=== PATIENT | male | born 1940 | race Caucasian/White ===

== ENCOUNTER → 2016-06-23 | Day surgery (SDC) | payer MEDICARE ==
[~2016-06-23] MED LIST: ASPI325T PO; BIOT1SUB SL; BUSP5TAB PO; BUTA50TA PO; CENTTAB8 PO; ESSE250T PO; IBUP200C PO; LIDOCAINE HCL 1% PF 30 ML VIAL OTHER ONE; NATU400T PO; SODIUM CHLORIDE 0.9% 10 ML VIAL ONE; SOMA350T PO; VITA500T PO; methylPREDNISolone ACETATE 80 MG/ML VIAL ONE
--- NOTE | 2016-06-26 05:34 | M6 ---
cc: MATTEO PARKER M.D. DATE 06/23/2016 DATE OF 1940 PROCEDURE Fluoroscopically guided L5-S1 translaminar epidural steroid injection. History and physical was completed and signed. Consent was signed. Procedure site was marked. Medications were listed and reconciled. Pain score was recorded. Allergies were noted. Time out was taken. Fluoroscopy time was recorded where applicable. Sedation was administered or directed by Dr. Parker. The patient was given oxygen. The patient was monitored by a registered nurse. Total procedure time was greater than 15 minutes. PROCEDURE NOTE IV was started. Blood pressure cuff, pulse oximeter and EKG were applied. The patient was placed in the prone position on a Roberto Carlos table. No sedation was used. His back was prepped with alcohol and 10% Betadine and draped with sterile drapes. Fluoroscopy was used to visualize the L5-S1 translaminar space. The skin was infiltrated with 1% Xylocaine using a 27-gauge needle. Then a 3-1/2-inch, 18-gauge Estrada needle was advanced using fluoroscopic guidance and the [id number]-[id number] technique into the epidural space at L5-S1 slightly to the right of the midline. There was negative aspiration for blood or any other type of fluid and the patient was given 8 mL of 0.5% Xylocaine, 80 mg of Depo-Medrol. Following the procedure the patient was taken to the recovery room with stable vital signs, neurologically intact. WMD ANTONINA Williamson/LEORA /10:24 AM /5:31 AM
== END | disposition home or self-care (01) ==
LOC: PHSDC 08:39
PROVIDERS: ATTEND Pain Medicine Interventional Pain Medicine
DX: M48.06 Spinal stenosis, lumbar region (principal); M12.88 Other specific arthropathies, not elsewhere classified, other specified site; M54.16 Radiculopathy, lumbar region
CPT/HCPCS: 62323; J1040

== ENCOUNTER → 2016-07-27 | Day surgery (SDC) | payer MEDICARE ==
[~2016-07-27] MED LIST changes: +BUPIVACAINE/EPINEPHRINE 0.25% 50 ML VIAL ONE; +KETOROLAC TROMETHAMINE 30 MG/ML (IVP) VIAL IV PUSH ONE; +LACTATED RINGER'S 1000 ML INJ 1,000 ML ONE; -LIDOCAINE HCL 1% PF 30 ML VIAL OTHER ONE; +MEPERIDINE HCL 50 MG/ML VIAL ONE; +MIDAZOLAM HCL 2 MG/2 ML VIAL ONE; +ONDANSETRON HCL 4 MG/2 ML VIAL IV PUSH ONE; +PROPOFOL 200 MG/20 ML AMP IV ONE; -SODIUM CHLORIDE 0.9% 10 ML VIAL ONE; +ceFAZolin 2 GM PREMIX 50 ML ONE; -methylPREDNISolone ACETATE 80 MG/ML VIAL ONE
--- NOTE | 2016-07-27 12:45 | TN ---
cc: GRACE MENDIOLA M.D. DATE OF SURGERY 07/27/2016 PREOPERATIVE DIAGNOSES 1. Left inguinal hernia, symptomatic. 2. Umbilical hernia, incidental. POSTOPERATIVE DIAGNOSES 1. Left inguinal hernia, symptomatic. 2. Umbilical hernia, incidental. PROCEDURE 1. Laparoscopic repair left inguinal hernia with mesh. 2. Umbilical hernia repair. SURGEON Dr. Grace Mendiola [employer] GIULIANA Solis ANESTHESIA General INDICATIONS This is a very pleasant 75-year-old gentleman who presented with a history of recurrent left inguinal hernia. He had a hernia repair done in 1992 and 1993. About a year ago he began experiencing a small bulge in the left inguinal area that is progressively getting bigger and more uncomfortable. He had an incidentally discovered small fingertip-sized umbilical hernia which was reducible and tender. Plans were made for operative repair. This procedure was assisted by my nurse practitioner. The skill set of a nurse practitioner was felt to be medically necessary to provide appropriate visualization of the important anatomic structures. During the surgical procedure, the surgical scrub technician was at the back table providing appropriate instrumentation while the nurse practitioner was directly assisting me through the entirety of the procedure. DESCRIPTION OF PROCEDURE IN DETAIL The patient was identified as Madhu Muro, taken to the operating room and placed supine position. Sequential compression devices were placed on the bilateral lower extremities. Following induction of adequate general anesthesia, the patient's lower abdomen was prepped and draped in the usual sterile fashion with Betadine. A time-out procedure was performed. Following completion of the time-out procedure to everyone's satisfaction within the room, the proposed infraumbilical small transverse incision was made beneath the umbilicus with a marking pen. Local anesthetic was placed around the umbilicus. The skin incision was carried out with scalpel and umbilical skin was lifted off the herniated preperitoneal fatty tissue, it from the overlying umbilical skin. The anterior fascia was cleared circumferentially around the umbilical hernia defect. Attention was turned to identification of the anterior rectus fascia on the left side. This was incised at its medial border and a preperitoneal plane was developed with the surgeon's finger directed towards the pubic symphysis. With the patient in slight Trendelenburg position, preperitoneal dissecting balloon was placed in the preperitoneal space under direct laparoscopic view and inflated to a total of approximately 25 pumps. This allowed identification of the left side José Antonio's ligament and the inferior epigastric vessels. The balloon was desufflated, removed and the structural balloon trocar placed in the preperitoneal space and its balloon inflated with CO2 insufflation until a level of 11 mmHg ensued. Two infraumbilical 5-mm trocars were placed in the preperitoneal space under direct laparoscopic view after incision of the skin with a scalpel. Attention was turned to the left side where blunt graspers were used to dissect lateral and posterior to the spermatic cord. An obvious indirect inguinal hernia sac which was chronic in nature, was scarred and adherent to the spermatic cord structures. It was reduced to the base of the spermatic cord carefully using blunt graspers and then a defect in the sac was made. Once it had been reduced to the base of the spermatic cord, examination was made to look for any spermatic cord lipoma and none was identified. There was no evidence of femoral or direct hernia defects as these areas were carefully inspected. A 4 x 6-inch piece of atrium ProLite mesh was cut with an anterolateral slit placed around the spermatic cord and tacked in position with the ProTack device. Tacks were placed to approximate the anterolateral slit along the anterior border of José Antonio's ligament. A 2 6-inch piece of mesh was placed across the anterolateral slit and held in position with the ProTack device. A tack was placed on the superior medial border of José Antonio's ligament on the superior lateral border of the mesh and superior medially and just medial to the inferior epigastric vessels. Photographs were taken of the completed repair. The remaining local anesthetic was placed in the preperitoneal space. The inferolateral aspect of the mesh was held against the abdominal wall while the preperitoneal space was desufflated and the peritoneum lay directly on top of the mesh, not underneath it. Trocars were removed under direct visualization. There was no evidence of bleeding from the trocar sites. The preperitoneal space was desufflated through the infraumbilical port and was then removed. The anterior rectus fascial incision was closed with running 2-0 Vicryl suture. The umbilical hernia defect was approximated with interrupted inverted 0 Prolene sutures. The umbilicus was sutured down to recreate the normal inward projection of the umbilicus using interrupted 2-0 Vicryl sutures. Skin incisions were approximated with 4-0 Monocryl subcuticular sutures. Dressings were applied with Mastisol, 1/2-inch brown Steri-Strips, gauze and Tegaderm were placed within the umbilicus. The patient tolerated the procedure without apparent complication. Sponge, needle and instrument counts were correct at the end of the case. MD MAYELA Medina/LEORA /12:10 PM /12:25 PM
== END | disposition home or self-care (01) ==
LOC: ESDC 09:37
PROVIDERS: ATTEND Surgery Trauma Surgery
DX: K40.90 Unilateral inguinal hernia, without obstruction or gangrene, not specified as recurrent (principal); K42.9 Umbilical hernia without obstruction or gangrene
CPT/HCPCS: 00750; 00840; 49585; 49650; C1727; C1781; J0690; J1885; J2175; J2250; J2405; J3010; J7120

== ENCOUNTER → 2017-02-24 | Day surgery (SDC) | payer MEDICARE ==
[~2017-02-24] VITALS: Ht 182.9 cm; Wt 91.0 kg
[~2017-02-24] MED LIST changes: +ASPI81CH CHEW; +BIOTCAP PO; +BUPIVACAINE HCL PF 0.5% 30 ML VIAL ONE; -BUPIVACAINE/EPINEPHRINE 0.25% 50 ML VIAL ONE; +CEPH-460 PO; +CHLORHEXIDINE GLUCONATE 2 % 1 PACK (2 CLOTHS) TOPICAL PRN; +INSULIN HUMAN REGULAR 1,000 UNITS/10 ML VIAL SQ PRN; -KETOROLAC TROMETHAMINE 30 MG/ML (IVP) VIAL IV PUSH ONE; -LACTATED RINGER'S 1000 ML INJ 1,000 ML ONE; +LACTATED RINGER'S 1000 ML IV PRN; +LIDOCAINE HCL 2% 50 ML VIAL ONE; -MEPERIDINE HCL 50 MG/ML VIAL ONE; +METOPROLOL TARTRATE 25 MG TAB PO PRN; +NEOMYCIN/POLYMYXIN 1 ML G.U. IRRIGANT ONE; +NORC5TAB PO; -ONDANSETRON HCL 4 MG/2 ML VIAL IV PUSH ONE; +ONE-TAB14 PO; +POVIDONE IODINE 5% (ANTISEPSIS KIT) 4 APPLICATIONS EACH NARE PRN; +SODIUM CHLORID 0.9% 500 ML IV PRN; +VITA-136 PO; +VITA500T83 PO; +ceFAZolin 2 GM PREMIX 50 ML IV SCH; -ceFAZolin 2 GM PREMIX 50 ML ONE
--- NOTE | 2017-02-24 10:09 | MP ---
cc: JOEL PETIT III, M.D. DATE OF SURGERY: 02/24/2017 PREOPERATIVE DIAGNOSIS Left ring finger mass. POSTOPERATIVE DIAGNOSIS Left ring finger mass. PROCEDURE Left ring finger mass excisional biopsy. SURGEON Joel Petit III, MD DETAILS OF PROCEDURE The patient was brought into the operating room and placed supine on the operating table. After the correct site and side of surgery were verified by members of each team in the room multiple times including the patient and myself, and after adequate preoperative markings and preoperative written consent was verified by everyone, and after an adequate preoperative timeout was performed to everyone's satisfaction and after adequate IV sedation had been achieved, the left upper extremity was prepped and draped in traditional sterile surgical fashion. The smallest finger from a size six sterile glove was placed around the finger for a finger tourniquet. A longitudinally oriented axial incision overlying the ulnar side of the mass was made within a skin crease and carried down through the skin and subcutaneous tissue. A large white well-circumscribed mass that led down to the joint was identified. It was dissected free from the surroundings in its entirety and passed off the field as a specimen. The material inside it was thick and chalky. There was no instability of the joint. There was no other anatomic abnormality. Thorough irrigation with a liter's worth of saline was performed. The skin edges were re-approximated using running 5-0 nylon suture. The hand and arm were thoroughly cleansed and dried. Betadine Adaptic dressings were applied atop the wound followed by a bulky soft dressing. The finger tourniquet was released. The finger became immediately soft, pink and warm and had brisk capillary refill of less than 2 seconds. The patient was awakened from anesthesia and transported to the post-anesthesia care unit awake and in stable condition at the end of the case. Sponge, needle and instrument counts were correct at the end of the case as reported by the nurses in the room. MD RODNEY Martinez III/FAUSTINO /9:40 AM /9:58 AM
[2017-02-24 10:15] VITALS: BP 108/70; PULSE 74; RESP 16; TEMP 98; O2SAT 95
--- NOTE | 2017-02-24 13:43 | EKG ---
Date Performed: 02/24/2017 Time Performed: 08:46:30 PTAGE: 76 years EKG: Sinus rhythm WITH OCCASIONAL SUPRAVENTRICULAR PREMATURE COMPLEXES POSSIBLE RIGHT VENTRICULAR CONDUCTION DELAY BOR DERLINE ECG NO PREVIOUS TRACING DOCTOR: Rayshawn Carrillo Interpretating Date/Time 02/24/2017 13:40:37
== END | disposition home or self-care (01) ==
LOC: PHSDC 06:52
PROVIDERS: ATTEND Orthopaedic Surgery Hand Surgery
DX: R22.32 Localized swelling, mass and lump, left upper limb (principal); R94.31 Abnormal electrocardiogram [ECG] [EKG]
CPT/HCPCS: 01810; 26116; 88305; 93005; J0690; J2250; J7120

== ENCOUNTER → 2017-04-08 | Day surgery (SDC) | payer MEDICARE ==
[~2017-04-08] MED LIST changes: +ASPI-516 CHEW; -ASPI325T PO; -ASPI81CH CHEW; -BIOT1SUB SL; -BUPIVACAINE HCL PF 0.5% 30 ML VIAL ONE; -CENTTAB8 PO; -CEPH-460 PO; +CHEL200T PO; -CHLORHEXIDINE GLUCONATE 2 % 1 PACK (2 CLOTHS) TOPICAL PRN; -INSULIN HUMAN REGULAR 1,000 UNITS/10 ML VIAL SQ PRN; -LACTATED RINGER'S 1000 ML IV PRN; +LIDOCAINE HCL 1% 30 ML VIAL NERV BLOCK ONE; -LIDOCAINE HCL 2% 50 ML VIAL ONE; -METOPROLOL TARTRATE 25 MG TAB PO PRN; -MIDAZOLAM HCL 2 MG/2 ML VIAL ONE; -NATU400T PO; -NEOMYCIN/POLYMYXIN 1 ML G.U. IRRIGANT ONE; -NORC5TAB PO; -POVIDONE IODINE 5% (ANTISEPSIS KIT) 4 APPLICATIONS EACH NARE PRN; -PROPOFOL 200 MG/20 ML AMP IV ONE; -SODIUM CHLORID 0.9% 500 ML IV PRN; +SODIUM CHLORIDE 0.9% 10 ML VIAL ONE; +TRIAMCINOLONE ACETONIDE 40 MG/ML VIAL NERV BLOCK ONE; -VITA-136 PO; +VITA-142 PO; -VITA500T PO; -ceFAZolin 2 GM PREMIX 50 ML IV SCH; +methylPREDNISolone ACETATE 80 MG/ML VIAL ONE
--- NOTE | 2017-04-08 11:42 | M6 ---
cc: MATTEO PARKER M.D. DATE 04/08/2017 DATE OF 1940 PROCEDURE Fluoroscopically-guided L5-S1 translaminar epidural steroid injection. History and physical was completed and signed. Consent was signed. Procedure site was marked. Medications were listed and reconciled. Pain score was recorded. Allergies were noted. Time out was taken. Fluoroscopy time was recorded where applicable. Sedation was administered or directed by Dr. Parker. The patient was given oxygen. The patient was monitored by a registered nurse. Total procedure time was greater than 15 minutes. PROCEDURE NOTE IV was started. Blood pressure cuff, pulse oximeter and EKG were applied. The patient was placed in the prone position on a Roberto Carlos table, sedated with small amounts of propofol titrated to effect. Vital signs were monitored and remained stable throughout the procedure. The lumbar area was prepped with alcohol and 10% Betadine solution and draped with sterile drapes. Fluoroscopy was used to visualize the L5-S1 interlaminar space. The skin was infiltrated with 1% Xylocaine using a 27-gauge needle. Then a 3-1/2-inch, 18-gauge Estrada needle was advanced using fluoroscopic guidance and the [id number]-tg-zsobzankca technique into the epidural space at L5-S1 slightly to the right of the midline. There was negative aspiration for blood or any other type of fluid and the patient was given 10 mL of 0.5% lidocaine and 80 mg of Depo-Medrol. Following that the patient was taken to the recovery room with stable vital signs, neurologically intact. WMD ANTONINA Williamson/LEORA /7:37 AM /11:34 AM
== END | disposition home or self-care (01) ==
LOC: PHSDC 06:44
PROVIDERS: ATTEND Pain Medicine Interventional Pain Medicine
DX: M54.16 Radiculopathy, lumbar region (principal); M48.061 Spinal stenosis, lumbar region without neurogenic claudication
CPT/HCPCS: 62323; J1040; J3301